=== PATIENT | female | born 1980 | race African-American/Black ===

== ENCOUNTER 2020-06-02 20:30 | Emergency (ER) | payer MEDICAID ==
[~2020-06-02] VITALS: Ht 172.7 cm; Wt 55.0 kg
[2020-06-02 20:44] VITALS: BP 122/86
== END 2020-06-02 23:27 | disposition left against medical advice (07) ==
LOC: ER 20:30
DX: Z53.21 Procedure and treatment not carried out due to patient leaving prior to being seen by health care provider (principal); R53.83 Other fatigue